=== PATIENT | male | born 1965 | race Asian ===

== ENCOUNTER → 2023-11-20 | Day surgery (SDC) | payer MEDICAID ==
[2023-11-08 15:54] LABS: BASOPHILS % (AUTO) 1.2 % (0.0-2.0); EOSINOPHILS % (AUTO) 4.9 % (1.0-6.0); HEMATOCRIT 45.4 % (41-53); HEMOGLOBIN 15.4 g/dL (13.5-17.5); LYMPHOCYTES # (AUTO) 2.3 K/uL (1.0-4.8); LYMPHOCYTES % (AUTO) 32.1 % (22.0-44.0); MEAN CORPUSCULAR HEMOGLOBIN 28.1 pg (26.0-34.0); MEAN CORPUSCULAR HGB CONC 33.9 G/dL (31.0-37.0); MEAN CORPUSCULAR VOLUME 83 fL (80-100); MONOCYTES # (AUTO) 0.5 K/uL (0.1-1.0); MONOCYTES % (AUTO) 7.6 % (2.0-9.0); NEUTROPHILS # (AUTO) 3.8 K/uL (1.8-7.7); NEUTROPHILS % (AUTO) 54.2 % (40.0-70.0); PLATELET COUNT (AUTO) 192 K/uL (150-450); RED BLOOD CELL COUNT(AUTO) 5.48 MIL/uL (4.50-5.90); WHITE BLOOD COUNT (AUTO) 7.1 K/uL (4.5-11.0)
[2023-11-08 16:11] LABS: ANION GAP 11 mmol/L (8-16); CALCIUM, TOTAL 9.3 mg/dL (8.8-10.5); CARBON DIOXIDE 26 mmol/L (22-29); CHLORIDE 104 mmol/L (98-107); GLOMERULAR FILTR. RATE CALC > 60 mL/min (>60); GLUCOSE,RANDOM 125 mg/dL (70-110); POTASSIUM 3.7 mmol/L (3.5-5.1); SODIUM SERUM 141 mmol/L (136-145); UREA NITROGEN, BLOOD 22 mg/dL (7-18)
[2023-11-08 16:15] LABS: PROTHROMBIN TIME 10.8 SEC (9.4-11.6)
[2023-11-08 16:17] LABS: ALANINE AMINOTRANSFERASE 48 U/L (12-78); ALBUMIN 4.2 g/dL (3.4-5.0); ALKALINE PHOSPHATASE 52 U/L (46-116); ASPARTATE AMINOTRANSFERASE 20 U/L (15-37); BILIRUBIN,TOTAL 1.3 mg/dL (0.1-1.0); TOTAL PROTEIN, SERUM 7.7 g/dL (6.4-8.2)
[~2023-11-20] VITALS: Ht 172.7 cm; Wt 86.4 kg
[~2023-11-20] MED LIST: ALLO300T2 PO; AMLO-258 PO; ASPI-1450 PO; ATOR40TA28 PO; CARV6 PO; CHLORHEXIDINE GLUCONATE 2% TOWELETTE [2'S/6'S] TP ONE; CHOL25TA4 PO; CeFAZolin 2 GM/DEXTROSE 0 ML IV ONE; CeFAZolin 2 GM/DEXTROSE 50 ML IV ONE; DAPA10TA PO; ETHYL ALCOHOL 62% ANTISEPTIC NASAL SANITIZER 0.6 ML AMPUL NASAL ONE; FENO160T75 PO; HYDR50TA36 PO; LOSA-382 PO; RINGERS SOLUTION,LACTATED 0 ML IV ONE; RINGERS SOLUTION,LACTATED 1,000 ML IV ONE; SEMA7TAB2 PO; TAMS0.4C94 PO; TRIAMCINOLONE ACETONIDE 40 MG/ML VIAL IM ONE
== END | disposition home or self-care (01) ==
LOC: SDS 00:01 → EDSTATUS 09:30
PROVIDERS: ATTEND Neurological Surgery
DX: M43.16 Spondylolisthesis, lumbar region (principal); M54.16 Radiculopathy, lumbar region; Z53.8 Procedure and treatment not carried out for other reasons; R05.9 Cough, unspecified; R91.8 Other nonspecific abnormal finding of lung field; I70.0 Atherosclerosis of aorta
CPT/HCPCS: 71046; 80053; 85025; 85610; 85730; J0690; J3301; J7120; Q9967; 36415-L1; 36415-TC